=== PATIENT | female | born 1980 | race Caucasian/White ===

== ENCOUNTER 2017-04-24 21:44 | Inpatient (IN) | payer OTHER ==
[~2017-04-24] VITALS: Ht 157.5 cm; Wt 108.0 kg
[~2017-04-24 21:44] MED LIST: ARMOUR THYROID90 MG PO; AUGMENTIN875 MG PO; BUSPAR10 MG PO; CALCIUM500 M4 PO; CYANOCOBALAM1000 MCG PO; FLEXERIL10 MG PO; LEVO-T125 MCG PO; METHYLPHENIDATE36 MG PO; MULTIVITAMIN W1 EAC7 PO; PAXIL40 MG PO
[2017-04-25 10:59] VITALS: BP 118/73
[2017-04-25 17:58] VITALS: BP 136/83
[2017-04-25 20:39] VITALS: BP 141/78
[2017-04-25 23:13] VITALS: BP 130/69
[2017-04-26 06:52] LABS: BASOPHIL (%) 0.1 % (0-1); EOSINOPHIL (%) 0 % (0-5); HEMATOCRIT 41.1 % (36.0-46.0); HEMOGLOBIN 13.4 G/DL (11.9-15.5); IMMATURE GRANULOCYTE (%) 0.7 % (0.0-0.7); LYMPHOCYTE (%) 5.7 % (15-42); LYMPHOCYTE COUNT 0.8 K/uL (1.0-2.8); MCH 28.5 PG (29.0-34.0); MCHC 32.6 G/DL (30.0-36.0); MCV 87.3 FL (83-99); MONOCYTE (%) 3.5 % (3-12); MONOCYTE COUNT 0.5 K/uL (0-0.8); NEUTROPHIL COUNT 13.2 K/uL (1.8-6.4); PLATELET COUNT 242 K/uL (156-360); RBC DIS.WIDTH-CV 13.2 % (11.8-14.6); RBC DIS.WIDTH-SD 42.3 % (39-53); RED BLOOD COUNT 4.71 M/uL (3.80-5.20); WHITE BLOOD COUNT 14.6 K/uL (4.1-10.2)
[2017-04-26 07:55] VITALS: BP 155/82
== END 2017-04-26 11:28 | disposition home or self-care (01) | DRG 621 ==
LOC: 2SOUTH → ENRESERV 21:44 → 2SOUTH 04-25 08:24 → 2EAST 04-25 10:16 → 2SOUTH 04-25 10:16 → ENRESERV 04-25 16:28 → 2EAST 04-25 17:53 → ENPENDDIS 04-26 → 2EAST 04-26 11:28
PROVIDERS: Surgery
PROC: 0DB64Z3 Excision of Stomach, Percutaneous Endoscopic Approach, Vertical (ICD-10-PCS; principal; 2017-04-25)
DX: E66.01 Morbid (severe) obesity due to excess calories (principal); Z68.41 Body mass index [BMI] 40.0-44.9, adult; E03.9 Hypothyroidism, unspecified; F41.9 Anxiety disorder, unspecified; F17.200 Nicotine dependence, unspecified, uncomplicated
CPT/HCPCS: 82948; 85025; J0131; J0690; J1100; J1170; J1644; J1650; J1885; J2250; J2405; J2765; J3010; J3480; J7120; S0020